=== PATIENT | female | born 1985 | race Asian ===

== ENCOUNTER 2018-09-14 13:31 | Emergency (ER) | payer OTHER ==
[~2018-09-14] VITALS: Ht 165.1 cm; Wt 69.9 kg
[2018-09-14 14:17] VITALS: Ht 165.1 cm; Wt 69.9 kg
[2018-09-14 15:36] VITALS: BP 122/79
== END 2018-09-14 15:36 | disposition home or self-care (01) ==
LOC: ED 13:31
DX: R07.89 Other chest pain (principal); R06.02 Shortness of breath; J45.909 Unspecified asthma, uncomplicated
CPT/HCPCS: J1885